=== PATIENT | female | born 1995 | race Caucasian/White ===

== ENCOUNTER 2017-03-06 18:10 | Inpatient (IN) | payer MEDICAID ==
[~2017-03-06] VITALS: Ht 162.6 cm; Wt 81.2 kg
[~2017-03-06 18:10] MED LIST: FERROUS SULFAT325 M2 PO
[2017-03-06 21:12] LABS: BASOPHIL % 0.3 % (0-2); PLATELET COUNT 248 x10^3mcL (130-400)
[2017-03-06 21:13] LABS: RED CELL DISTRIBUTION WIDTH 15.3 % (11.5-14.5)
[2017-03-06 21:13] LABS: microscopic required? YES; urine erythrocyte 3+ (NEGATIVE)
[2017-03-06 21:20] LABS: CARBON DIOXIDE 25.7 mmol/L (21-32); CHLORIDE SERUM 104 mmol/L (98-107); CREATININE SERUM 0.7 mg/dL (0.6-1.0); GFR1 > 60 mL/min; GLUCOSE SERUM 99 mg/dL (74-106); POTASSIUM SERUM 3.6 mmol/L (3.5-5.1); SODIUM SERUM 140 mmol/L (136-145)
[2017-03-06 21:24] LABS: ALBUMIN 3.9 g/dL (3.4-5.0); ALKALINE PHOSPHATASE 96 U/L (46-116); ALT/SGPT 20 U/L (14-59); AMYLASE 29 U/L (25-115); AST/SGOT 14 U/L (15-37); BILIRUBIN TOTAL 0.7 mg/dL (0.20-1.00); LIPASE 89 IU/L (73-393); TOTAL PROTEIN, SERUM 7.1 g/dL (6.4-8.2)
[2017-03-07 00:28] VITALS: BP 149/94
[2017-03-07 00:42] LABS: CHOLESTEROL/HDL RATIO 3.9; PHOSPHOROUS 3.8 mg/dL (2.5-4.9)
[2017-03-07 01:15] LABS: FREE T4 0.93 ng/dL (0.76-1.46); FREE THYROXINE INDEX 2.6 ug/dL (1.4-4.5); T4(THYROXINE) 7.7 ug/dL (4.7-13.3)
[2017-03-07 01:47] LABS: T3 TOTAL 1.11 ng/mL
[2017-03-07 05:55] VITALS: BP 106/58
[2017-03-07 06:15] LABS: AMPHETAMINE QUAL UR NONE DETECTED (NEG <=1000)
[2017-03-07 07:17] LABS: BASOPHIL % 0.2 % (0-2); PLATELET COUNT 214 x10^3mcL (130-400); RED CELL DISTRIBUTION WIDTH 15.4 % (11.5-14.5); rbc morphology (normal/abnorm) ABNORMAL (NORMAL)
[2017-03-07 07:22] LABS: CALCIUM 8.2 mg/dL (8.5-10.1); CARBON DIOXIDE 23.8 mmol/L (21-32); CHLORIDE SERUM 107 mmol/L (98-107); CREATININE SERUM 0.6 mg/dL (0.6-1.0); GFR1 > 60 mL/min; GLUCOSE SERUM 83 mg/dL (74-106); PHOSPHOROUS 3.2 mg/dL (2.5-4.9); POTASSIUM SERUM 3.3 mmol/L (3.5-5.1); SODIUM SERUM 142 mmol/L (136-145)
[2017-03-07 09:00] VITALS: BP 110/67
[2017-03-07 13:05] VITALS: BP 121/79
[2017-03-07 17:30] VITALS: BP 123/91
[2017-03-07 18:57] VITALS: Ht 162.6 cm; Wt 81.2 kg
[2017-03-07 20:56] VITALS: BP 112/81
[2017-03-08 05:05] VITALS: BP 114/77
[2017-03-08 06:18] LABS: CALCIUM 8.8 mg/dL (8.5-10.1); CARBON DIOXIDE 26.9 mmol/L (21-32); CHLORIDE SERUM 106 mmol/L (98-107); CREATININE SERUM 0.6 mg/dL (0.6-1.0); GFR1 > 60 mL/min; GLUCOSE SERUM 79 mg/dL (74-106); PHOSPHOROUS 3.9 mg/dL (2.5-4.9); POTASSIUM SERUM 3.1 mmol/L (3.5-5.1); SODIUM SERUM 142 mmol/L (136-145)
[2017-03-08 06:51] LABS: BASOPHIL % 0.5 % (0-2); PLATELET COUNT 232 x10^3mcL (130-400); RED CELL DISTRIBUTION WIDTH 15.3 % (11.5-14.5)
[2017-03-08 08:52] VITALS: BP 115/74; BP 120/72
[2017-03-08 12:14] VITALS: BP 121/57
[2017-03-08] MEDS ORDERED: ZOFRAN ODT4 MG SL (15:27)
[2017-03-08] MEDS ORDERED: GOOD SENSE OMEP20 MG PO (15:27)
[2017-03-08 16:33] VITALS: BP 104/65
== END 2017-03-08 20:14 | disposition home or self-care (01) | DRG 249 ==
LOC: ED 18:10 → DU 23:08 → MU 23:08 → DU 03-07 00:25 → MU 03-07 12:47
PROVIDERS: Family Medicine; Specialist
DX: K52.9 Noninfective gastroenteritis and colitis, unspecified (principal); N17.0 Acute kidney failure with tubular necrosis; D50.9 Iron deficiency anemia, unspecified; E87.6 Hypokalemia; R31.9 Hematuria, unspecified; Z68.31 Body mass index [BMI] 31.0-31.9, adult
CPT/HCPCS: 78226; 83880; 84439; 87046; 87046-59; A9537; J1170; J2405; J2550; J3010; J3480; J3490; J7030; J7042; J8597; Q0092; Q9967